=== PATIENT | female | born 1970 | race Caucasian/White ===

== ENCOUNTER 2016-04-13 11:18 | Emergency (ER) | payer OTHER ==
[2016-04-13] VITALS (15 sets, daily range): BP systolic 108–123; BP diastolic 76–90
[~2016-04-13] VITALS: Ht 177.8 cm; Wt 66.0 kg
[~2016-04-13 11:18] MED LIST: CIPRO500 MG PO; MIRALAX17 GM PO; ZOFRAN4 MG PO
[2016-04-13] MEDS ORDERED: ZOLPIDEM TARTRA10 MG PO (12:31)
[2016-04-13] MEDS ORDERED: AMITRIPTYLINE H10 MG PO (12:32)
[2016-04-13] MEDS ORDERED: BACLOFEN10 MG PO (12:33)
[2016-04-13] MEDS ORDERED: GABAPENTIN250 MG/5 M PO (12:34)
[2016-04-13] MEDS ORDERED: RILUZOLE50 MG PO (12:34)
[2016-04-13] MEDS ORDERED: VENLAFAXINE HCL75 M3 PO (12:35)
[2016-04-13] MEDS ORDERED: ATROPINE 1100 DROP/5 BOTH EYES (12:35)
[2016-04-13] MEDS ORDERED: GLYCOPYRROLATE1 MG PO (12:35)
[2016-04-13] MEDS ORDERED: AFLURIA 2045 MCG/014 IM (12:36)
[2016-04-13] MEDS ORDERED: ZOLPIDEM TARTRAT5 MG PO (12:36)
[2016-04-13 12:47] LABS: EOSINOPHIL (%) 0.2 % (0-5); HEMATOCRIT 43.7 % (36.0-46.0); IMMATURE GRANULOCYTE (%) 0.2 % (0.0-0.7); IMMATURE GRANULOCYTE COUNT 0.1 K/uL; LYMPHOCYTE COUNT 1.1 K/uL (1.0-2.8); MCH 31.3 PG (29.0-34.0); MCHC 33.4 G/DL (30.0-36.0); MCV 93.8 FL (83-99); MEAN PLAT.VOLUME 11.2 uM^3 (9.5-12.4); MONOCYTE (%) 4.6 % (3-12); MONOCYTE COUNT 0.3 K/uL (0-0.8); NEUTROPHIL (%) 78.6 % (45-76); NEUTROPHIL COUNT 5.1 K/uL (1.8-6.4); PLATELET COUNT 136 K/uL (156-360); RBC DIS.WIDTH-CV 13.5 % (11.8-14.6); RBC DIS.WIDTH-SD 44.7 % (39-53); RED BLOOD COUNT 4.66 M/uL (3.80-5.20); WHITE BLOOD COUNT 6.5 K/uL (4.1-10.2)
[2016-04-13 12:58] LABS: CHLORIDE 109 mEq/L (99-109); POTASSIUM 3.9 mEq/L (3.7-5.4); SODIUM 142 mEq/L (136-147)
[2016-04-13 13:00] LABS: GLUCOSE 97 mg/dL (70-99)
[2016-04-13 13:01] LABS: ANION GAP 8 MEQ/L (2-14)
[2016-04-13 13:02] LABS: TOTAL BILIRUBIN 0.7 mg/dL (0.0-1.0)
[2016-04-13 13:03] LABS: ALKALINE PHOSPHATASE 103 IU/L (3-129)
[2016-04-13 13:04] LABS: GFR ESTIMATE (CALCULATED) > 59 mL/min/
[2016-04-13 13:05] LABS: UREA NITROGEN (BUN) 12 mg/dL (9-23)
[2016-04-13 16:15] LABS: INFLUENZA A VIRAL ANTIGEN NEGATIVE; INFLUENZA B VIRAL ANTIGEN POSITIVE
== END 2016-04-13 22:05 | disposition short-term general hospital (02) ==
LOC: EME 11:18
PROVIDERS: Emergency Medicine
DX: G12.21 Amyotrophic lateral sclerosis (principal); J10.00 Influenza due to other identified influenza virus with unspecified type of pneumonia; J18.9 Pneumonia, unspecified organism
CPT/HCPCS: 71010; 71275; 80053; 83605; 85025; 87040; 87070; 87205; 87502; 94640; 99281; 99285; J1100; J1956; J2270; J2405

== ENCOUNTER 2016-08-29 15:05 | Emergency (ER) | payer OTHER ==
[~2016-08-29] VITALS: Ht 177.8 cm; Wt 63.3 kg
[~2016-08-29 15:05] MED LIST changes: +AFLURIA 2045 MCG/014 IM; +AMITRIPTYLINE H10 MG PO; +ATROPINE 1100 DROP/5 BOTH EYES; +BACLOFEN10 MG PO; +GABAPENTIN250 MG/5 M PO; +GLYCOPYRROLATE1 MG PO; +RILUZOLE50 MG PO; +VENLAFAXINE HCL75 M3 PO; +ZOLPIDEM TARTRA10 MG PO; +ZOLPIDEM TARTRAT5 MG PO
[2016-08-29] MEDS ORDERED: BACTRIM,SEPTRA S1 ML PO (17:04)
[2016-08-29 17:26] VITALS: BP 117/89
== END 2016-08-29 17:27 | disposition home or self-care (01) ==
LOC: EME 15:05
DX: L89.019 Pressure ulcer of right elbow, unspecified stage (principal); G12.21 Amyotrophic lateral sclerosis; G82.50 Quadriplegia, unspecified
CPT/HCPCS: 99281; 99283